=== PATIENT | male | born 1985 | race Caucasian/White ===

== ENCOUNTER 2016-06-03 00:42 | Emergency (ER) | payer OTHER ==
[2016-06-03 01:02] VITALS: BMI 31.4
[2016-06-03 01:16] LABS: MPV 9.1 fL (7.4-10.4)
--- NOTE | 2016-06-03 01:25 | EDPRACDOC ---
- General Information Chief Complaint: Blood Pressure (Problems) Stated Complaint: LT SIDE FACE NUMBNESS Time Seen by Provider: 06/03/16 00:51 Information Source: Patient, Paramedical Aide Mode Of Arrival: Ambulance Home Medications: Home Medications Aspirin [Ecotrin] 81 mg PO DAILY #30 tablet. 06/03/16 Lisinopril 10 mg PO DAILY 06/03/16 Metoprolol Tartrate 25 mg PO BID 06/03/16 Prednisone [Deltasone, Orasone] 5 mg PO DAILY #14 tablet 06/03/16 Allergies/Adverse Reactions: Allergies Allergy/AdvReac Type Severity Reaction Status Date / Time No Known Allergies Allergy Verified 06/03/16 01:02 - History of Present Illness Onset: 1 DAY HPI: TODAY THE PATIENT DEVELOPED LEFT FACIAL NUMBNESS MIDDLE OF HIS FACE FOR THE NASOLABIAL FOLD OVER TOWARD HIS LEFT ZYGOMATIC ARCH THERE HAS BEEN NO ASSOCIATED WEAKNESS WITH THIS HE HAS ALSO HAD SOME NAUSEA BUT NO VOMITING. HE HAS A HISTORY OF LUPUS HOWEVER HE IS BED NONCOMPLIANT WITH HYDROXYCHLOROQUINE DUE TO FINANCIAL REASONS. RECENTLY HE HAS HAD PAIN IS IN HIS LEFT HIP LEFT KNEE LEFT ANKLE RIGHT FOOT. WHILE HE HAS HAD THESE BEFORE EASE IS CURRENTLY RELATED THIS TO A GOUT FLARE. PATIENT OF STATES THAT HE HAS BEEN EMOTIONALLY LABILE RECENTLY WHICH IS UNCHARACTERISTIC FOR HIM. PATIENT ALSO HAD HER WAS BLOOD PRESSURE SEES PCP YESTERDAY INCREASED HIS HIS LISINOPRIL. 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 Denies: Cancer Surgical History: Reports: Appendectomy - Social Medical History Smoking Status: Light tobacco smoker (less than 5/day) EDM Review of Systems - Review of Systems ROS Negative Except as Marked: Yes All systems reviewed and were negative except as marked - Physical Exam Constitutional: Alert (Awake), No apparent distress Oriented to: Time, Person, Place Last recorded Vital Signs: Last Vital Signs Temp 98.9 F 06/03/16 00:45 Pulse 54 L 06/03/16 00:45 Resp 15 06/03/16 00:45 BP 139/84 06/03/16 00:45 Pulse Ox 96 06/03/16 00:45 Oxygen Pulse Oxygen Saturation 96 O2 Device Room Air Oxygen Flow Rate Fraction of Inspired Oxygen ( FIO2) - HEENT Head: Normal ( normocephalic) Eye Exam: Normal (PERRL, EOMI, Sclera white) Oropharynx: Normal (Pharynx:Moist without exudate,Gums-no swelling) Tympanic Membrane: Normal ENT EAC: Normal TMJ: Normal Nose: No Symptoms Reported (septum midline) Neck: Normal (FROM, trachea at midline) - Respiratory/Cardiovascular Respiratory: Normal - CTA (BBS clear to auscultation without adventitious sounds ) Cardiovascular: Normal (RRR without murmur, gallop or rub) - GI Auscultation: Normal (NABS) Palpation: Normal (Soft,No rebound or guarding, non distended) Tenderness: Non tender Tyson's Sign: Negative - Musculoskeletal Back: Normal (Non-Tender) Extremities: Normal (Normal tone, Pulses 2+ No cyanosis or edema, FROM) - Integumentary Skin: Normal, Warm, Dry Lymphatics: Normal (no adenopathy) - Neurologic Memory Impaired: Normal Motor Function: Normal (Normal tone, Pulses 2+ No cyanosis or edema, FROM) Cranial Nerve: Normal (CN II-X11 intact sensation, strength 5/5) Cerebellar: Normal Mood Description: Normal Perception: Normal NIH Stroke Scale Re-evaluation 1 Level of Consciousness: Alert LOC- Question: Answers Both Correctly LOC Commands: Both Task Correctly Best Gaze: Normal Visual: No Visual Loss Facial Palsy: Normal Movement Motor Arm LEFT: No Drift Motor Arm RIGHT: No Drift Motor Leg LEFT: No Drift Motor Leg RIGHT: No Drift Limb Ataxia: Absent Sensory: Normal Best Language: No Aphasia Dysarthria: Normal Extinction and Inattention: No Abnormality (Neglect) Score: 0out of42 - Neurologic Orientation: Time, Person, Place Speech: Fluent Coginitive: Normal Affect: Normal Thought: Coherent Perception: Normal - Coordination Finger to Nose Test: Normal Performance Alternate Nose to Finger Test: Normal Performance Heel on Dial Test: Normal Performance - Gait Standing Equilibrium Reactions: Within Normal Limits Left - Results 06/03/16 01:02 06/03/16 01:02 WBC 5.7 xk/uL (3.8-10.8) 06/03/16 01:02 RBC 5.09 xM/uL (4.70-6.10) 06/03/16 01:02 Hgb 15.8 g/dL (14.0-18.0) 06/03/16 01:02 Hct 45.7 % (42-52) 06/03/16 01:02 MCV 90 fL (80-94) 06/03/16 01:02 MCH 31.0 pg (27-32) 06/03/16 01:02 MCHC 34.5 g/dl (33-36) 06/03/16 01:02 RDW 13.2 % (11.5-14.5) 06/03/16 01:02 Plt Count 225 xk/uL (130-400) 06/03/16 01:02 MPV 9.1 fL (7.4-10.4) 06/03/16 01:02 Lab Results 06/03/16 01:02 WBC 5.7 RBC 5.09 Hgb 15.8 Hct 45.7 MCV 90 MCH 31.0 MCHC 34.5 RDW 13.2 Plt Count 225 MPV 9.1 - EKG EKG #1 EKG Time: 00:56 -: Yes EKG interpreted by nd Rate: bpm: 50 [place]: Normal Rhythm: SB Block: None Hypertrophy: None ST: Normal - Diagnostic Imaging Head Image interpreted by: Radiologist Patient Name: KAVITHA OLEA LOC: ED : 05/01/1990 AGE: 26 Order Date:06/02/16 Date of Service:05/07 Report # [id number] Ord Physician: Reji Dean DO Exam # [id number] Emergency Physician: Provider,ER Exam(s): [id number] RAD/DG CHEST 2V CLINICAL DATA: Cough and congestion, body aches and chest tightness. Symptoms for 4 days. EXAM: CHEST 2 VIEW COMPARISON: None. FINDINGS: The cardiomediastinal contours are normal. The lungs are clear. Pulmonary vasculature is normal. No consolidation, pleural effusion, or pneumothorax. No acute osseous abnormalities are seen. IMPRESSION: No acute pulmonary process. Electronically Signed By: Fariba Tinoco M.D. On: 06/02/2016 23:31 Electronically Signed By: Fariba Tinoco MD Electronically Signed Date/Time: [id number] Dictate Date/Time: 06/02/16 2862 Technologist: Cl Kingston Transcribed By: Vicente Transcribed Date/Time: 06/02/16 2331 - Departure Disposition: Home Condition: Stable Final Diagnosis: MILD LUPUS FLARE, Exacerbation of systemic lupus Education/Counseling Given To: Patient, Family Member Education/Counseling Given Regarding: Diagnosis, Treatment, Prognosis Referrals: Glenn Munoz MD [Primary Care Provider] - One Week Prescriptions: Aspirin [Ecotrin] 81 mg PO DAILY #30 tablet. Prednisone [Deltasone, Orasone] 5 mg PO DAILY #14 tablet Additional Instructions: RESTART HYDROXYCHLOROQUINE AND SOON POSSIBLE. RETURN TO THE EMERGENCY DEPART FOR WORSE OR DIFFERENT SYMPTOMS. SEE DR. MUNOZ THIS WEEK.
[2016-06-03] MEDS ORDERED: PREDNISONE 10 MG TAB PO ONE (01:26)
[2016-06-03] MEDS ORDERED: ASPIRIN (CHEWABLE) 81 MG TAB PO ONE (01:26)
[2016-06-03 01:28] LABS: BLOOD UREA NITROGEN 23 MG/DL (9-20); CALCIUM 9.8 MG/DL (8.4-10.2); CALCULATED OSMOLALITY 269 MOs/Kg (270-290); CHLORIDE 103 mEq/L (98-107); GLUCOSE 88 MG/DL (70-99); SODIUM LEVEL 138 mEq/L (137-146); TOTAL PROTEIN 6.8 G/DL (6.3-8.2)
--- NOTE | 2016-06-03 02:33 | DIRPT ---
CLINICAL DATA: 30-year-old male with left facial numbness. EXAM: CT HEAD WITHOUT CONTRAST TECHNIQUE: Contiguous axial images were obtained from the base of the skull through the vertex without intravenous contrast. COMPARISON: None FINDINGS: The ventricles and the sulci are appropriate in size for the patient's age. There is no intracranial hemorrhage. No midline shift or mass effect identified. The ascencio-white matter differentiation is preserved. The visualized paranasal sinuses and mastoid air cells are well aerated. The calvarium is intact. IMPRESSION: No acute intracranial hemorrhage. Electronically Signed By: Craig Mesa M.D. On: 06/03/2016 02:31
[2016-06-03 03:06] VITALS: BP 167/107; PULSE 60; TEMP 98.6
== END 2016-06-03 03:04 | disposition home or self-care (01) ==
LOC: ED 00:42
DX: M32.9 Systemic lupus erythematosus, unspecified (principal); I10 Essential (primary) hypertension; F17.210 Nicotine dependence, cigarettes, uncomplicated; Z79.899 Other long term (current) drug therapy
CPT/HCPCS: 36415; 70450; 80053; 84484; 85027; 86140; 93005; 99284; J3490